=== PATIENT | male | born 1960 | race Two or more races ===

== ENCOUNTER 2017-05-25 05:20 | Emergency (ER) | payer MEDICARE, OTHER ==
[~2017-05-25] VITALS: Ht 167.6 cm; Wt 99.8 kg
[2017-05-25 07:05] LABS: Basophils # (auto) 0 uL; Basophils % (auto) 0.4 % (0.0-2.0); CONDITION Y; Eosinophils # (auto) 0.2 uL; Eosinophils % (auto) 2.2 % (0.0-7.0); Hematocrit 43.7 % (41.0-53.0); Hemoglobin 14.8 g/dL (13.5-17.5); Lymphocytes # (auto) 1.5 uL; Lymphocytes % (auto) 15.7 % (10.0-50.0); Mean Corpuscular Hemoglobin 28.5 pg (28.0-32.0); Mean Corpuscular Hgb Conc. 33.9 g/dL (32.0-36.0); Mean Platelet Volume 7.8 fL (7.4-10.4); Monocytes # (auto) 0.7 uL; Monocytes % (auto) 8.1 % (0.0-12.0); Neutrophils # (auto) 6.8 uL; Neutrophils % (auto) 73.6 % (37.0-80.0); Platelet Count (auto) 361 10^3/uL (140-450); Red Cell Distribution Width 14.6 % (11.6-16.0); White Blood Cell 9.3 10^3/uL (4.4-10.8)
[2017-05-25 07:23] LABS: Albumin 3.2 g/dL (3.4-5.0); BUN/Creatinine Ratio 18.3; Calcium 8.9 mg/dL (8.5-10.1); Potassium 4.7 mmol/L (3.5-5.1)
[2017-05-25 07:56] LABS: Bilirubin, Total 0.4 mg/dL (0.2-1.0); Total Protein 9.5 g/dL (6.4-8.2)
[2017-05-25 09:54] VITALS: BP 145/68
[2017-05-25 10:30] LABS: Urine Bilirubin Negative (Negative); Urine Blood Negative /uL (Negative); Urine Color Yellow (Yellow); Urine Glucose Normal (Normal); Urine Hyaline Cast FEW /lpf (0 - 2); Urine Ketone Negative (Negative); Urine Nitrite Negative (Negative); Urine RBC <1 /hpf (0 - 3); Urine Urobilinogen Normal (Negative); Urine pH 5.5 (5.0-8.0)
[2017-05-25] MEDS ORDERED: ONDANSETRON ODT 4 MG TAB PO ONE (11:00)
[2017-05-25] MEDS ORDERED: HYDROmorphone HCL 2 MG/ML VL IV ONE (11:00)
== END 2017-05-25 12:14 | disposition home or self-care (01) ==
LOC: EDBD 05:20 → ER 05:20
DX: S76.811D Strain of other specified muscles, fascia and tendons at thigh level, right thigh, subsequent encounter (principal); F17.210 Nicotine dependence, cigarettes, uncomplicated; F12.10 Cannabis abuse, uncomplicated; W18.30XD Fall on same level, unspecified, subsequent encounter
CPT/HCPCS: 36415; 80053; 81001; 85025; 96374; 99284; J1170; Q0162